=== PATIENT | male | born 1995 | race African-American/Black ===

== ENCOUNTER 2019-11-09 16:37 | Emergency (ER) | payer SELFPAY ==
[~2019-11-09] VITALS: Ht 190.5 cm; Wt 122.7 kg
[2019-11-09] MEDS ORDERED: HYD50 PO (17:23)
[2019-11-09] MEDS ORDERED: TRAZ-257 PO (17:23)
[2019-11-09] MEDS ORDERED: PROZ10 PO (17:23)
[2019-11-09] MEDS ORDERED: BACITRACIN 0.9 GM PACKET OINTMENT TP ONE (18:00)
[2019-11-09] MEDS ORDERED: IBUPROFEN 800 MG TABLET PO ONE (19:30)
[2019-11-09] MEDS ORDERED: HYDROCODONE/ACETAMINOPHEN 5-325 MG TABLET PO ONE (20:30)
[2019-11-09 21:13] VITALS: BP 127/69
== END 2019-11-09 21:23 | disposition home or self-care (01) ==
LOC: EMS 16:37
DX: S52.122A Displaced fracture of head of left radius, initial encounter for closed fracture (principal); S62.346A Nondisplaced fracture of base of fifth metacarpal bone, right hand, initial encounter for closed fracture; R03.0 Elevated blood-pressure reading, without diagnosis of hypertension; J45.909 Unspecified asthma, uncomplicated; F32.9 Major depressive disorder, single episode, unspecified; F41.9 Anxiety disorder, unspecified; F17.210 Nicotine dependence, cigarettes, uncomplicated; F12.90 Cannabis use, unspecified, uncomplicated; Z88.1 Allergy status to other antibiotic agents; Y04.2XXA Assault by strike against or bumped into by another person, initial encounter; Y93.89 Activity, other specified; Y92.89 Other specified places as the place of occurrence of the external cause; Y99.8 Other external cause status